=== PATIENT | female | born 2000 | race Caucasian/White ===

== ENCOUNTER 2021-05-14 19:26 | Emergency (ER) | payer BC, SELFPAY ==
--- NOTE | ~2021-05-14 | XR_ITS ---
EXAMINATION: XR hand wrist LT CLINICAL INFORMATION: Pain after fall COMPARISON: None. TECHNIQUE: 3 views left hand and wrist FINDINGS: No fracture. Normal alignment. Normal mineralization. No radiopaque foreign body. No soft tissue abnormality seen. XR/XR hand wrist LT IMPRESSION: No acute osseous abnormality.
[2021-05-14 19:32] VITALS: BP 131/78; PULSE 78; RESP 18; TEMP 36.2; O2SAT 99; BMI 25.0
--- NOTE | 2021-05-14 20:40 | ED.EXTPRO ---
HPI - Extremity Problem General Chief complaint: Extremity Injury, Upper Stated complaint: hand inj Time Seen by Provider: 05/14/21 19:58 Source: patient Mode of arrival: ambulatory Limitations: no limitations History of Present Illness HPI Narrative: patient presents to the ED for left hand pain. patient states she he hit her hand on the desk while trying to break her fall. patient denies hitting head or loss of consciousness. patient denies body hitting the ground. patient states only complaint is left hand pain. patient denies any chest pain, abdominal pain, headache, back pain, nausea, emesis, shorntess of breath, rectal bleeding, blood in the stool, vomitting blood, neck pain, or pain in other extremities. MD Complaint: extremity pain Related Data Previous Rx's Medication Instructions Recorded naproxen 500 mg tablet 500 mg PO BID PRN #20 tab 05/14/21 Allergies Allergy/AdvReac Type Severity Reaction Status Date / Time No Known Allergies Allergy Verified 05/14/21 19:58 Review of Systems Review of Systems: Yes all other systems are reviewed and are negative Constitutional: Constitutional: Reports as per HPI and Reports no additional constitutional complaints Eyes: Eyes: Reports as per HPI and Reports no additional eye complaints ENT: Reports system reviewed and no additional complaints, except as documented and Reports as per HPI Cardiovascular: Cardiovascular: Reports as per HPI and Reports no additional cardiovascular complaints Respiratory: Respiratory: Reports as per HPI and Reports no additional respiratory complaints Gastrointestinal: Gastrointestinal: Reports as per HPI and Reports no additional gastrointestinal complaints Genitourinary: Genitourinary: Reports no additional female genitourinary complaints and Reports as per HPI Musculoskeletal: Musculoskeletal: Reports no additional musculoskeletal complaints, Reports as per HPI and Reports arthralgias (left hand pain) Neurologic: Reports system reviewed and no additional complaints, except as documented and Reports as per HPI Psychiatric: Psychiatric: Reports no additional psychiatric complaints and Reports as per HPI [facility] Social History Social History Advance Directives: No Advance Directives Information Provided: No Physical Exam Vital Signs: Vital Signs: Last Vital Signs Temp 97.2 F 05/14/21 19:32 Pulse 78 05/14/21 19:32 Resp 18 05/14/21 19:32 BP 131/78 05/14/21 19:32 Pulse Ox 99 05/14/21 19:32 Body Mass Index 25.0 Const: General: cooperative, healthy appearing, comfortable, no acute distress, well developed, alert, awake and Physically active Orientation/consciousness: patient oriented x3 HENMT: Head: Yes normal to inspection, Yes No palpable skull fracture present, Yes normocephalic, Yes atraumatic, No abrasion, No Acrocyanosis present, No Zheng's sign, No contusion, No cranial bruits, No hematoma, No laceration, No occipital foramen tenderness, No palpable skull fracture, No raccoon eyes, No scalp lesion, No scalp tenderness, No Temporal artery tenderness present and No periorbital ecchymosis Eyes: General: appearance normal, both eyes and all related structures Neck: Neck: Yes normal visual inspection, Yes full ROM, Yes no lymphadenopathy, Yes no meningeal signs, Yes trachea midline, Yes supple, No anterior neck swelling and No tender Chest: Chest palpation & inspection: normal inspection of the chest and normal palpation of entire chest wall Resp: Effort & Inspection: normal respiratory effort and able to speak in complete sentences Auscultation: clear to auscultation bilaterally Cardio: Jugular venous distension: no JVD Heart sounds: S1 normal heart sound present and S2 normal heart sound present GI: Inspection: Yes normal to inspection and No abdominal wall ecchymosis Palpation (GI): Soft to palpation, not firm, nontender, no guarding and not rigid : General: No CVA tenderness and Yes no CVA tenderness Back/Spine/Pelvis: Back: no CVA tenderness, No CVA tenderness and No back tenderness Skin: General skin exam: no rashes or lesions noted and elasticity normal Neuro: General: patient oriented x3, gait normal, no meningeal signs and CN's II-XI intact bilaterally Cranial nerves: Yes CN's II-XII intact bilaterally Extrem: Hand/finger images: 1. positive for tenderness on palaption with slight swelling. negative for any ecchymosis, erythema, hotness, or coldness. capillary refill intact. motor exam intact, but limited due to pain. Neuro and vascular exam is intact Psych: Appearance: grossly normal, well kempt and not disheveled Course Course Course Narrative: sent for xray of left hand/wrist Reevaluation(s) Reevaluation #1: Xray negative for fracture. Discharge with delmis wrap and pain meds. History physical exam does not indicate cellulitis, DVT, compartment syndrome, septic joint, or obvious fracture. Time: 21:58 MDM - Extremity (Nontraumatic) MDM Narrative Medical decision making narrative: contusion Discharge Plan Discharge Clinical Impression: Contusion Patient Disposition: Home, Self-Care Instructions: Contusion in Adults (ED) Additional Instructions: The x-ray came back negative for any fractures. Diagnosis is contusion. Recommend rest, ice elevation, and ice on the area. Will be discharged with NSAIDs. Return to the ED immediately for worsening pain, redness, swelling, bluish black discoloration of fingers, coolness, hotness, paralysis, tingling/numbness, fever, chills, upper extremity swelling, red streaks, chest pain, shortness of breath, or any other concerning symptoms. Please follow-up with primary care provider Prescriptions: New naproxen 500 mg tablet 500 mg PO BID PRN (Reason: pain) Qty: 20 RF: 0 Interventions: ED Discharge Assessment Last Done: 05/14/21 20:52 Discharge Date/Time: 05/14/21 20:56 Print Language: Georgian
== END 2021-05-14 20:56 | disposition home or self-care (01) ==
PROVIDERS: Emergency Provider Internal Medicine
DX: S60.222A Contusion of left hand, initial encounter (principal); M79.642 Pain in left hand; W01.0XXA Fall on same level from slipping, tripping and stumbling without subsequent striking against object, initial encounter; Y93.9 Activity, unspecified; Y92.9 Unspecified place or not applicable; Y99.9 Unspecified external cause status
CPT/HCPCS: 73110; 73130; 99283